=== PATIENT | female | born 2000 | race Caucasian/White ===

== ENCOUNTER 2023-12-19 19:23 | Emergency (ER) | payer OTHER ==
[~2023-12-19] VITALS: Ht 170.2 cm; Wt 65.9 kg
[2023-12-19 19:36] VITALS: BP 147/87; TEMP 98.6
[2023-12-19] MEDS ORDERED: predniSONE 20 MG TAB PO ONE (20:15)
[2023-12-19] MEDS ORDERED: Albuterol/Ipratropium 3 MG-0.5 MG/3 ML Neb Soln IH ONE ×2 (20:15→21:00)
[2023-12-19] MEDS ORDERED: PREDNISONE50 MG PO (21:14)
[2023-12-19 21:36] VITALS: PULSE 72
== END 2023-12-19 21:36 | disposition home or self-care (01) ==
LOC: COL.ER 19:23
DX: J45.901 Unspecified asthma with (acute) exacerbation (principal); Z91.040 Latex allergy status
CPT/HCPCS: J7512